=== PATIENT | female | born 1950 | race Two or more races ===

== ENCOUNTER 2018-04-04 10:45 | Day surgery (SDC) | payer OTHER | END 2018-04-04 16:30 | disposition home or self-care (01) | LOC: AMB-ENDOS 10:45 → CIR.AMB 12:15 → AMB-ENDOS 12:15 | DX: Z86.010 Personal history of colon polyps (principal) ==

== ENCOUNTER 2019-04-07 07:00 | Inpatient (IN) | payer OTHER ==
[~2019-04-07] VITALS: Ht 160 cm; Wt 69.9 kg
[2019-04-07] MEDS ORDERED: PROTONIX40 MG PO (14:38)
[2019-04-07] MEDS ORDERED: CRESTOR20 MG PO (14:38)
[2019-04-07] MEDS ORDERED: TRIGLIDE160 MG PO (14:39)
== END 2019-04-22 16:50 | disposition home or self-care (01) | DRG 330 ==
LOC: ADM 07:00 → EDSTATUS 13:45 → ADM 13:45 → SURH 04-10 13:45 → O/R 04-15 07:30 → SURH 04-15 17:48
PROVIDERS: ADMIT Colon & Rectal Surgery
PROC: 0WQF4ZZ Repair Abdominal Wall, Percutaneous Endoscopic Approach (ICD-10-PCS; 2019-04-15)
PROC: 0DQB4ZZ Repair Ileum, Percutaneous Endoscopic Approach (ICD-10-PCS; 2019-04-15)
PROC: 0DJD8ZZ Inspection of Lower Intestinal Tract, Via Natural or Artificial Opening Endoscopic (ICD-10-PCS; 2019-04-15)
PROC: 0DTN4ZZ Resection of Sigmoid Colon, Percutaneous Endoscopic Approach (ICD-10-PCS; principal; 2019-04-15 10:00)
DX: K56.51 Intestinal adhesions [bands], with partial obstruction (principal); K92.1 Melena; K91.71 Accidental puncture and laceration of a digestive system organ or structure during a digestive system procedure; K43.0 Incisional hernia with obstruction, without gangrene; J95.89 Other postprocedural complications and disorders of respiratory system, not elsewhere classified; J98.11 Atelectasis; K63.89 Other specified diseases of intestine; I10 Essential (primary) hypertension

== ENCOUNTER 2020-06-03 06:17 | Day surgery (SDC) | payer OTHER ==
[~2020-06-03 06:17] MED LIST: CRESTOR20 MG PO; PROTONIX40 MG PO; TRIGLIDE160 MG PO
== END 2020-06-03 11:05 | disposition home or self-care (01) ==
LOC: AMB-ENDOS 06:17
PROVIDERS: ATTEND Colon & Rectal Surgery
DX: K62.89 Other specified diseases of anus and rectum (principal); K64.2 Third degree hemorrhoids; Z20.828 Contact with and (suspected) exposure to other viral communicable diseases